=== PATIENT | female | born 1940 | race Caucasian/White ===

== ENCOUNTER → 2018-03-09 | Outpatient (CLI) | payer MEDICARE, OTHER ==
[~2018-03-09] MED LIST: CONTRAST GIVEN. MC PRN
[2018-03-09] MEDS: IOHEXOL 180 MG/ML 10 ML VIAL. INT ART ONE (13:49)
[2018-03-09] MEDS: LIDOCAINE WITH 8.4% SOD BICARB 3 ML DISP.SYRIN. INJ ONE (13:50)
--- NOTE | 2018-03-09 17:06 | RAD ---
Lumbar myelogram, 03/09/2018: History: Back and left leg pain Under local anesthesia, aseptic conditions and fluoroscopic guidance a lumbar puncture was performed at the mid L4 level utilizing a 25-gauge Nancy spinal needle. Good clear CSF flow was obtained following which 14 cc of Omnipaque 180 was injected into the thecal sac. The spinal needle was then removed and appropriate digital imaging performed. 4.0 minutes of fluoroscopy time was utilized. 18 fluoroscopic spot images were recorded. The patient tolerated the procedure well and was sent to CT in good condition. The following findings are delineated on the myelogram: 1. There are moderate anterior extradural defects at all of disc levels from L1-2 through L4-5. 2. Upright flexion and extension views demonstrate mild anterolisthesis at L4-5 which is greatest with flexion and largely reduces with extension. 3. There are prominent posterior spurs at L3-4. There is minimal retrolisthesis at this level with with extension. 4. There is slight anterolisthesis of L5-S1. 5. There is poor filling of the nerve root sleeves bilaterally at multiple levels. CT lumbar spine-post myelogram, 03/09/2018: Multidetector CT imaging was performed with multiplanar multiplanar reconstructions produced. The following findings are delineated: 1. No fracture or destructive bony lesion is seen. There is disc space narrowing and vacuum phenomena throughout the lumbar spine. There are moderate degenerative changes involving multiple facet joints bilaterally. 2. At L1-2 there are prominent posterior spurs the thecal sac measures 10 mm in AP diameter at the midline. There is moderate inferior foraminal narrowing bilaterally due to the spurring. 3. At L2-3 there is moderate broad-based posterior disc bulging with lateral disc protrusion on the left. The central spinal canal is not significantly stenotic. There is moderate left foraminal stenosis due to the disc protrusion and facet spurring. 4. At L3-4 there is moderate posterior spurring which is most prominent to the left of midline. This narrows the left side of the thecal sac within the spinal canal. The marginal spurring and facet spurring is causing moderate to severe left foraminal encroachment at this level. The right neural foramen is widely patent. 5. At L4-5 there is extensive facet joint arthropathy with vacuum phenomenon at the facet joints. There is moderate broad-based posterior disc bulging which in conjunction with the facet joint disease is causing severe bilateral foraminal stenosis. There is only slight anterolisthesis in the supine position for CT imaging. 6. At L5-S1 there is moderate posterior marginal spurring, more so on the right. This finding in conjunction with facet spurring is causing severe right foraminal stenosis at this level. There is only mild left foraminal narrowing. The central spinal canal is well maintained. IMPRESSION: 1. Moderate to severe multilevel degenerative change as described above. 2. Severe bilateral foraminal stenosis at L4-5 with mild anterolisthesis in the upright position. 3. Moderate to severe left foraminal stenosis at L3-4. 4. Left lateral disc protrusion at L2-3. 5. Severe right foraminal stenosis at L5-S1.
== END | disposition home or self-care (01) ==
LOC: RAD 14:02
PROVIDERS: ATTEND Neurological Surgery
DX: M51.26 Other intervertebral disc displacement, lumbar region (principal); M48.061 Spinal stenosis, lumbar region without neurogenic claudication; M48.07 Spinal stenosis, lumbosacral region; M51.36 Other intervertebral disc degeneration, lumbar region; M12.88 Other specific arthropathies, not elsewhere classified, other specified site
CPT/HCPCS: 72132; 72265; Q9965

== ENCOUNTER → 2018-04-13 | Outpatient (CLI) | payer MEDICARE, OTHER ==
[~2018-04-13] MED LIST changes: +ALEN70TA3 PO; +ASPI81TA50 PO; +CA C1TAB62 PO; +CETI10TA22 PO; +CHOL10003 PO; -CONTRAST GIVEN. MC PRN; +HYDR-2145 PO; +LOSA25TA PO; +LUTE20TA PO; +MELO15TA6 PO; +SIMV80TA17 PO
--- NOTE | 2018-04-13 21:57 | PAIN ---
DATE OF SERVICE: 04/13/2018 INITIAL CONSULTATION FOR PAIN CLINIC CHIEF COMPLAINT: Low back and bilateral lower extremity pain. HISTORY OF PRESENT ILLNESS: This is a 78-year-old female who presents with history of pain in the low back and left lower extremity with some numbness across the low back into the posterior gluteus, posterior thighs, lateral thigh on the left, lateral lower leg, medial lower leg on the left side as well and into the first and second toes on the left side with numbness and tingling in the groin bilaterally. The patient reports this has been going on for about 2 years, increasing, not the result of any specific injury or action that she is aware of, worse on the left side, but also on the right. The patient reports it is worse with walking, standing, changing positions, getting up from a seated position, awakens her from sleep about 3-4 times at night, usually better with sitting down and lying down, but again awakening her from sleep quite often. The patient reports that she is using a walker as it does affect her ability to walk fairly significantly and she has it with her today. The patient has had epidural injections, trigger point injections, physical therapy, most recently in 11/2017 and 12/2017 with epidural injections, trigger point injections in 04/2017 and physical therapy in 06/2017 and 09/2017 all with very temporary results, still significant pain returning after approximately 1-2 months of each of these modalities. The patient reports her disability rate from 0 to 10, 10 being the worst as a 7 with family and home responsibilities, 10 with recreation, 9 with social activity and occupation, 0 with sexual behavior, 2 with self-care and 7 with life support activities. The patient did have a CT scan with myelogram showing [id number] multilevel degenerative change, severe bilateral foraminal stenosis at L4-L5 with mild anterolisthesis, moderate to severe left foraminal stenosis at L3-L4, left lateral disk protrusion at L2-L3, severe right foraminal stenosis at L5-S1. The patient has recently been evaluated by her neurosurgeon who is not recommending any surgery at this time and is recommending conservative measures such as a spinal cord stimulator as she has had other modalities tried without success. The patient rates the pain as constant, sharp, shooting, radiating, intermittent in intensity, cramping, aching across the low back as well. PAST MEDICAL HISTORY: Significant for hypertension, arthritis, bradycardia and hyperlipidemia. PREVIOUS SURGERY: Include tonsillectomy at age 11, femur fracture, umbilical hernia repair, bilateral carpal tunnel repair, appendectomy and bilateral cataract extractions. CURRENT MEDICATIONS: Include Mobic, hydrochlorothiazide, Fosamax, Cozaar, simvastatin, daily baby aspirin, Zyrtec, vitamin D3, Citracal and Lutein. ALLERGIES: The patient has no known drug allergies. The patient is also taking [id number] Motrin, Aleve and Tylenol. FAMILY HISTORY: The patient's family history is significant for heart disease. SOCIAL HISTORY: The patient does not drink alcohol, does not smoke, does not use illegal, illicit or recreational drugs. She is , lives alone and lives in [facility]. REVIEW OF SYSTEMS: The patient's review of systems is positive for those items mentioned in the history of present illness. All systems reviewed and otherwise negative. It is complete, full and well documented on the patient's chart. PHYSICAL EXAMINATION: VITAL SIGNS: The patient's blood pressure is 156/72, pulse is 54, respirations 18, temperature 97.8 degrees Fahrenheit. Height is 5 feet 2 inches, weight is 201 pounds. GENERAL: The patient is awake, alert, oriented, appropriate, very pleasant demeanor. HEENT: Head shows normocephalic and atraumatic. Extraocular movements are intact and symmetrical. Oral cavity: Mucous membranes are moist and pink. Dentition is intact. NECK: Shows anterior throat is supple without palpable lymphadenopathy noted. Swallow reflex is symmetrical. CHEST: Shows normal on inspection. Breath sounds are clear to auscultation bilaterally. HEART: Shows S1 and S2 clear. No murmurs are auscultated. ABDOMEN: Soft, nontender and nondistended. No palpable organomegaly is noted. No rebound or guarding demonstrated. BACK: Shows spine grossly in the midline. Slight exaggeration of thoracic kyphosis with mild flattening of the lumbar lordotic curvature. Lumbar paraspinous muscle shows symmetrical on inspection. With palpation shows some moderate tenderness diffusely in the middle and lower distribution of the paraspinous muscles, but only diffusely without radiation. The patient has good rotational motion both laterally greater than 10 degrees right and left as well as extension greater than 10 degrees, forward flexion at 45 degrees without significant pain reported. No tenderness over the spinous processes, sacrum or sacroiliac regions. EXTREMITIES: Lower extremities show deep tendon reflexes at 1+ in the patellar and tendo-calcaneus tendons. Motor exam is strong with approximately 4 on a scale of 5, but equal and symmetrical dorsiflexion, extension, quadriceps and hamstring flexion. Peripheral pulses are 1+ posterior tibial. No peripheral edema is noted. Lower extremities are warm and dry to touch and equal in color and appearance. Straight leg raise noted to be negative for reproduction of radicular symptoms bilaterally as is Gaenslen's and Rocco's maneuvers are negative bilaterally as well. The patient is able to stand, has difficulty to try to stand on her toes, loses balance very quickly, walks with a significantly wide stance gait and antalgic, appears to favor the left lower extremity over the right with ambulating and again using a walker to do so. SKIN: The patient's skin shows warm and dry, good turgor. No edema. No sores, rashes or bruising. IMPRESSION: This is a 78-year-old female with approximate 2-year history of increasing pain in the low back and the bilateral lower extremities, left greater than right in a radicular fashion, status post multiple interventional techniques, physical therapies, lumbar injections, epidural steroid injections, facet joint injections without significant improvement long-term with recent evaluation by Neurosurgery not recommending any surgery that may correct these issues. The patient would like to pursue a spinal cord stimulator and this may be a very good alternative for her as she has tried other modalities more conservatively without significant improvement and no surgical intervention indicated at this time. We will check with the patient's insurance for preauthorization for a spinal cord stimulator trial. Placement and have psychological evaluation performed as well. The patient will follow up once this is completed and we will plan on a temporary spinal cord stimulator placement at that time. GEOVANNY DACOSTA MD DR: CARA/sherrill JOB#: [id number] / [id number]
== END | disposition home or self-care (01) ==
LOC: PNCL 12:18
PROVIDERS: ATTEND Anesthesiology
DX: M51.16 Intervertebral disc disorders with radiculopathy, lumbar region (principal); M47.26 Other spondylosis with radiculopathy, lumbar region; M48.061 Spinal stenosis, lumbar region without neurogenic claudication; I10 Essential (primary) hypertension; M19.90 Unspecified osteoarthritis, unspecified site; E78.5 Hyperlipidemia, unspecified; Z79.899 Other long term (current) drug therapy; Z82.49 Family history of ischemic heart disease and other diseases of the circulatory system
CPT/HCPCS: G0463

== ENCOUNTER → 2018-05-17 | Outpatient (CLI) | payer MEDICARE, OTHER ==
--- NOTE | 2018-05-17 23:56 | PAIN ---
DATE OF SERVICE: 05/17/2018 PROGRESS NOTE FOR PAIN CLINIC DIAGNOSES: Lumbar radiculopathy with lumbar degenerative disk disease and lumbar spinal stenosis. HISTORY OF PRESENT ILLNESS: The patient is a 78-year-old female who returns for followup after evaluation and preauthorization for a spinal cord stimulator temporary lead trial. The patient has been evaluated with a psychology with a good category for a spinal manipulation and implantation of devices and we would like to proceed. The patient reports still significant pain in the low back, mostly into the left lower extremity, primarily but across the low back bilaterally. The patient reports it is a 10 on a scale of 10 at its worst, anywhere from 8-10 on an average, is 7 at its least and is an 8 today. The patient reports it is aching, sharp, tight, shooting, tingling, burning, stabbing and more constant with walking, standing, changing positions. The patient reports no new motor or sensory deficits and no new bowel or bladder incontinence or other complaints, waking her from sleep occasionally but not every night. PHYSICAL EXAMINATION: VITAL SIGNS: The patient's blood pressure 179/68, pulse is 57, respirations 20, temperature 97.3 degrees Fahrenheit and weight is 197 pounds. GENERAL: The patient is awake, alert, oriented, appropriate and very pleasant demeanor. HEENT: Head shows normocephalic and atraumatic. Extraocular movements intact and symmetrical. Oral cavity: Mucous membranes moist and pink. Dentition is intact. NECK: Shows anterior throat supple without palpable lymphadenopathy noted. Swallow reflex is symmetrical. CHEST: Shows normal on inspection. Breath sounds are clear to auscultation bilaterally. HEART: Shows S1 and S2 clear. No murmurs auscultated. ABDOMEN: Soft, nontender and nondistended. No palpable organomegaly is noted. No rebound or guarding demonstrated. BACK: Shows spine grossly in the midline. Normal appearing thoracic kyphosis and lumbar lordotic curvature. Lumbar paraspinous muscle shows symmetrical on inspection, on palpation shows some moderate tenderness diffusely throughout the upper, middle and lower distribution of the paraspinous muscle. The patient has good rotational motion, however, the lumbar spine, both laterally greater than 10 degrees right and left as well as extension greater than 10 degrees, forward flexion 45 degrees without significant pain reported. EXTREMITIES: The patient's lower extremities show deep tendon reflexes at 1+ in the patellar and tendo-calcaneus tendons and are equal. Motor exam is strong with 5/5 dorsiflexion, extension, quadriceps and hamstring flexion 4/5 but symmetrical and equal. Peripheral pulses are 1+ posterior tibia. No peripheral edema is noted bilaterally. Options were discussed with the patient. The patient's old chart was reviewed as well as her current medication regimen updated. Current review of systems updated today as well. We will proceed with a temporary leads, spinal cord stimulator trial x 2 with fluoroscopic guidance. Risks were again discussed including, but not limited to bleeding, infection, possibility of epidural hematoma and subsequent neurological compromise, dural puncture, headaches, spinal cord and/or nerve damage, exposure of fluoroscopy as well as poor results regarding pain control. The patient understands and wished to proceed. The patient will return to clinic in approximately 1 week for removal of the temporary leads and evaluation of the stimulator system at that time. The patient was given instruction as well as side effects to be aware of and instructions with the stimulator use as well with our [employer] product sales representative will be in contact with the patient over the next week as well. DIAGNOSES: Lumbar radiculopathy with lumbar spinal stenosis and lumbar degenerative disk disease. PROCEDURE: Temporary lead placement. Spinal cord stimulator x 2 under sterile prep and drape using local anesthetic using C-arm fluoroscopic guidance. The patient was consented and placed in a prone position on her C-arm fluoroscopic guidance. The vertebral column was identified and external marker was placed over the T8 vertebral body. Using sterile prep and drape, local anesthetic was then instilled at the L3-L4 interspace to achieve analgesia of the skin and subcutaneous tissues using a 14-gauge Hustead curved epidural needle with stylet. The epidural space was entered with preservative-free normal saline, loss of resistance technique under direct fluoroscopic guidance both AP and lateral views with negative aspiration. At this time, the spinal cord stimulator lead was then advanced through the needle into the epidural space again under direct visualization with a C-arm fluoroscopic guidance, both AP and lateral views in the midline to the first wire to arrest at the superior endplate of the T8 vertebral body in the midline and verify posterior placement with lateral views on C-arm fluoroscopic guidance. Second lead was placed with a similar technique and another 14-gauge Hustead curved epidural needle with stylet, again preservative-free normal saline loss of resistance technique was used with negative aspiration at this site as well. At the L3-L4, left paramidline with the first was right paramidline spinal cord stimulator lead was advanced again in the midline to lie adjacent to the first wire with the tip of the second wire more left midline than at the superior endplate of T9 vertebral body. This again was verified with a lateral fluoroscopic guidance to be in the posterior aspect of the epidural space. At this time, the needles were removed and stylets were removed under intermittent fluoroscopic evaluation to assure no movement of the leads. Leads were sutured in place in sterile fashion and then taped to the patient's skin with Mastisol and Tegaderms and reinforced with a gauze and tape as well. The patient was transferred to the recovery area under her own power, had no immediate complications and tolerated the procedure well. The patient will follow up in approximately one week again for lead removal and evaluation at that time. GEOVANNY DACOSTA MD DR: CARA/sherrill JOB#: [id number] / [id number]
== END | disposition home or self-care (01) ==
LOC: PNCL 12:49
PROVIDERS: ATTEND Anesthesiology
DX: M51.16 Intervertebral disc disorders with radiculopathy, lumbar region (principal); M48.061 Spinal stenosis, lumbar region without neurogenic claudication; Z91.048 Other nonmedicinal substance allergy status
CPT/HCPCS: 63650; C1897

== ENCOUNTER → 2018-05-24 | Outpatient (CLI) | payer MEDICARE, OTHER ==
--- NOTE | 2018-05-24 17:07 | PAIN ---
DATE OF SERVICE: 05/24/2018 PROGRESS NOTE FOR PAIN CLINIC DIAGNOSES: Lumbar radiculopathy with lumbar degenerative disk disease, lumbar spinal stenosis. HISTORY OF PRESENT ILLNESS: The patient is a 78-year-old female who returns for followup status post temporary spinal cord stimulator lead placement 1 week ago. The patient returns today after some contact with both she and the [employer] [facility] spinal cord stimulator representatives over the week. She did very well with at least a 50-75% improvement in her pain. The patient reports she has been increasing her activity with greater ease and comfort, walking greater distances, been sleeping better at night and rolling over from sleeping in a supine position to a prone, back and forth and changing positions in bed, which were used to be very painful. The patient reports it is reduced at least 50% and she is very pleased with her progress with the stimulator trial. The patient reports no new motor or sensory deficits, no new changes or other problems. There is no difficulty with the leads or the bandages or any other complications. The patient reports the pain is now reduced significantly. She would like to look into permanent placement. The patient reports her pain has been a 6 on a scale 10 at its worst over the past week and a 5 at its least and averages about a 5 today. The patient reports it is aching and dull across the low back into the lower extremities is almost completely gone, but the pain is only in the back, which is dull and aching at this time. The patient reports no new motor or sensory deficits, no new bowel or bladder incontinence or other complaints. PHYSICAL EXAMINATION: VITAL SIGNS: The patient's blood pressure 172/68, pulse 55, respirations 18, temperature is 97.8 degrees Fahrenheit, height is 5 feet 2 inches, weight is 201 pounds. GENERAL: The patient is awake, alert, oriented, appropriate, very pleasant demeanor. The patient is accompanied by her daughter. HEENT: Head shows normocephalic, atraumatic. Extraocular movements are intact and symmetrical. Oral cavity: Mucous membranes moist and pink. Dentition intact. NECK: Shows anterior throat supple. CHEST: Shows breath sounds clear to auscultation bilaterally. HEART: Shows S1, S2 clear. ABDOMEN: Obese, but soft, nontender and nondistended. BACK: Shows spine grossly in the midline, slightly exaggerated thoracic kyphosis and mild flattening of lumbar lordotic curvature. PLAN: The patient's bandages were taken down in the lumbar distribution revealing very clean, dry, nonerythematous area of insertion of the spinal cord stimulator leads. Under sterile technique, the sutures were cut and the leads were removed with tips intact x 2 sites clean and dry, no erythema, no discharge, no tenderness. Sterile bandage was then applied. The patient will return to clinic for scheduling a permanent placement, which we will make those arrangements for. She would like to proceed with this. We discussed the stimulator system and a permanent configuration with a neurostimulator generator as well and she again would like to look into this. We will make the arrangements and have her return once those arrangements are made. GEOVANNY DACOSTA MD DR: CARA/sherrill JOB#: [id number] / [id number]
== END | disposition home or self-care (01) ==
LOC: PNCL 10:54
PROVIDERS: ATTEND Anesthesiology
DX: M51.16 Intervertebral disc disorders with radiculopathy, lumbar region (principal); M48.061 Spinal stenosis, lumbar region without neurogenic claudication
CPT/HCPCS: G0463

== ENCOUNTER → 2020-02-04 | Outpatient (CLI) | payer MEDICARE, OTHER ==
[~2020-02-04] MED LIST changes: -CETI10TA22 PO; +CETI10TA74 PO
--- NOTE | 2020-02-04 13:34 | PDOC ---
Progress Note - Pain Clinic Date of Service: DOS: DATE: 02/04/20 TIME: 13:31 Diagnosis: Dx: Lumbar radiculopathy with lumbar spinal stenosis and lumbar degenerative disc disease History or Present Illness: HPI: 80-year-old female returns for follow-up status post spinal cord stimulator implant May,. Patient had very good results with the stimulation until the last few weeks the pain began to return she had been doing very well with almost no pain. Patient reports she has recently had it readjusted with her [employer] sales representative malt [employer], approximately 5 days ago with significant decrease in pain and she is doing much better. Patient ports to some pain in the low back and on the right side of the posterior hips rated as a 10 on scale 10 is worse over the past week 9 on average 4 to sleep is a 4 today patient ports it was tight and stabbing severe but after the spinal cord stimulator readjustment has doing much better. Patient reports is not awakened from sleep any longer she is increase her activity she is doing some stretching and strengthening exercises classes at her living facility and she enjoys these very much and wanted to make sure that this was not going to risk her stimulator or its positioning. Patient reports otherwise doing very well no new motor or sensory deficits no new bowel or bladder incontinence or other complaints. Physical Exam: VS: Blood pressure is 191/75 pulse 56 respirations 18 temperature 97.5 F height is 5 feet 2 inches weight is 195 pounds PE: PHYSICAL EXAMINATION: GENERAL: The patient is awake, alert, oriented, appropriate, very pleasant demeanor HEENT: Shows normocephalic, atraumatic. Extraocular movements are intact and symmetrical. Oral cavity: Mucous membranes moist and pink. Dentition is intact. NECK: Shows anterior throat supple without palpable lymphadenopathy noted. Swallow reflex symmetrical. CHEST: Shows normal on inspection. Breath sounds are clear bilaterally, no rales rhonchi wheezes auscultated. HEART: Shows S1, S2 clear. No murmurs auscultated. ABDOMEN: Soft, nontender, nondistended, obese. No palpable organomegaly is noted. No rebound or guarding demonstrated. BACK: Shows spine grossly in the midline. Normal-appearing cervical lordotic curvature. There is slightly increased thoracic kyphosis, some minor flattening of the lumbar lordotic curvature. Easily palpable spinal cord stimulator ge nerator to the left of midline in the lumbar distribution of the paraspinous distribution with well-healed surgical scarring is again noted. Lumbar paraspinous muscles show symmetrical on inspection, on palpation shows some moderate tenderness diffusely throughout the upper, middle and lower distribution of the paraspinous muscles without specific trigger points, without radiation of pain. The patient has good rotational motion of the lumbar spine, both laterally as well as extension and flexion without significant difficulty. No tenderness over the spinous processes, sacrum or sacroiliac regions. EXTREMITIES: Lower extremities show deep tendon reflexes 1 in the patellar and tendo calcaneus tendons. Motor exam is 4 on a scale of 5 with right dorsiflexion, extension, quadriceps and hamstring flexion and 4/5 on the left. Peripheral pulses are 1+ posterior tibial. No peripheral edema is noted bilaterally. SKIN: Shows warm and dry, good turgor. No edema. No sores, rashes or bruising throughout. Procedure: Procedure: Options were discussed with the patient. Patient will chart reviews her current medication regimen updated current review of systems updated today as well. We will have patient follow-up on as-needed basis at this time although she has some mild tenderness over the right posterior superior iliac spine and sacroiliac region I feel that her stretching strengthening exercise classes will probably take care of this and we discussed this with she and her daughter who is present with her today as well. At this time patient will maintain current stimulator mode program and follow-up on an as-needed basis. Medication Injected: Med Injected: None Condition at Discharge: Condition at Discharge: Condition at discharge is stable. GEOVANNY DACOSTA MD Feb 04, 2020 13:34
== END | disposition home or self-care (01) ==
LOC: PNCL 12:39
PROVIDERS: ATTEND Anesthesiology
DX: M51.16 Intervertebral disc disorders with radiculopathy, lumbar region (principal); M48.061 Spinal stenosis, lumbar region without neurogenic claudication; Z79.82 Long term (current) use of aspirin; Z79.899 Other long term (current) drug therapy; Z88.8 Allergy status to other drugs, medicaments and biological substances
CPT/HCPCS: G0463